=== PATIENT | male | born 1990 | race Caucasian/White ===

== ENCOUNTER 2019-02-28 08:53 | Emergency (ER) | payer MEDICAID, OTHER ==
[~2019-02-28] VITALS: Ht 180.3 cm; Wt 68.0 kg
[~2019-02-28 08:53] MED LIST: METH27TA PO
[2019-02-28 08:59] VITALS: BP 148/67
--- NOTE | 2019-02-28 09:06 | NUR ---
AT BEDSIDE FOR EVAL.
--- NOTE | 2019-02-28 09:49 | NUR ---
Patient discharged to home in stable condition. Written and verbal after care instructions given. Patient verbalizes understanding of instruction.
== END 2019-02-28 09:50 | disposition home or self-care (01) ==
LOC: ER 08:58
DX: S61.210A Laceration without foreign body of right index finger without damage to nail, initial encounter (principal); F10.10 Alcohol abuse, uncomplicated; F17.200 Nicotine dependence, unspecified, uncomplicated; Y90.9 Presence of alcohol in blood, level not specified; Z98.890 Other specified postprocedural states; Z79.899 Other long term (current) drug therapy; W26.8XXA Contact with other sharp object(s), not elsewhere classified, initial encounter; Y93.89 Activity, other specified; Y92.89 Other specified places as the place of occurrence of the external cause; Y99.0 Civilian activity done for income or pay